=== PATIENT | male | born 2000 | race African-American/Black ===

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

== ENCOUNTER 2022-12-27 08:30 | Emergency (ER) | payer MEDICAID ==
[2022-12-27] MEDS ORDERED: Ibuprofen 200 MG TAB ONE (09:03)
[2022-12-27] MEDS ORDERED: Lidocaine 1% PF 5 ML VIAL ONE (09:47)
== END 2022-12-27 11:00 | disposition home or self-care (01) ==
LOC: CSHERS 08:30
DX: S62.312A Displaced fracture of base of third metacarpal bone, right hand, initial encounter for closed fracture (principal); W22.8XXA Striking against or struck by other objects, initial encounter
CPT/HCPCS: 26605